=== PATIENT | male | born 1940 | race Caucasian/White ===

== ENCOUNTER 2017-05-31 03:33 | Emergency (ER) | payer BC, MEDICARE ==
--- OUTSIDE RECORDS SUMMARY | 2017-05-31 03:51 | XMS | Clinical Summary ---
:1940 Author Organization [facility] Address [address] [place] [address] Phone Care Team Providers Name Role Phone , Primary Care Provider Unavailable Allergies Not on File Current Medications Not on file Active Problems Not on file Social History Tobacco Use Types Packs/Day Years Used Date Never Assessed Sex Assigned at Date Recorded Not on file Last Filed Vital Signs Not on file Plan of Treatment Not on file Results Not on filefrom Last 3 Months
== END 2017-05-31 04:02 | disposition home or self-care (01) ==
LOC: ERS 03:33
DX: R13.10 Dysphagia, unspecified (principal); G20 Parkinson's disease; H40.9 Unspecified glaucoma
CPT/HCPCS: 99283

== ENCOUNTER 2017-07-04 16:23 | Observation (INO) | payer BC ==
[2017-07-04 17:12] LABS: #Lymphocytes 0.4 thou/uL (1.20-3.40); #Neutrophils 8.7 thou/uL (1.40-6.50); %Basophils 0.4 % (0.0-1.0); %Eosinophils 0.1 % (0.0-10.0); %Lymphocytes 4.3 % (21.0-51.0); %Monocytes 10.1 % (0.0-10.0); Hematocrit 35.7 % (42.0-52.0); Mean Platelet Volume 7.6 fL (7.4-10.4); Red Blood Cell (RBC) Count 3.42 mill/uL (4.70-6.10); White Blood Cell (WBC) Count 10.2 thou/uL (4.8-10.8)
[2017-07-04 17:30] LABS: Lactic Acid - Sepsis 0.6 mmol/L (0.5-2.2)
[2017-07-04 17:34] LABS: ALT (SGPT) Less than 7 U/L (8-55); AST (SGOT) 20 U/L (5-34); Alkaline Phosphatase 79 U/L (40-150); Anion Gap 11 mmol/L (10-20); BUN (Urea Nitrogen) 28 mg/dL (8.4-25.7); Bilirubin, Total 1.2 mg/dL (0.2-1.2); Calc. Creatinine Clearance 0 mL/min (70-130); Calcium 9.7 mg/dL (7.8-10.44); Carbon Dioxide 31 mmol/L (23-31); Chloride 91 mmol/L (98-107); Estimated GFR-MDRD 86; Globulin 3.3 g/dL (2.4-3.5); Protein, Total 7.4 g/dL (5.8-8.1)
[2017-07-04 17:58] LABS: Magnesium 2.2 mg/dL (1.6-2.6); Troponin I 0.012 ng/mL (< 0.028)
--- NOTE | 2017-07-04 18:11 | RAD ---
TWO AP VIEWS OF THE CHEST: Indication: Generalized weakness. IMPRESSION: No acute cardiopulmonary abnormality. COPD changes. Post-surgical changes involving the right lung ap ex is similar to the comparison dated 04-03-17. Previously seen left lower lobe nodule opacity has reso lved. POS: [facility]
[2017-07-04 18:27] LABS: Bilirubin Negative (Negative); Blood, Urine Negative (Negative); Glucose, Urine (Dipstick) Negative (Negative); Ketone, Urine Negative (Negative); Nitrite Negative (Negative); Protein, Urine (Dipstick) Negative (Neg-Trace)
[2017-07-04] MEDS ORDERED: Acetaminophen 325 MG TAB PO PRN (21:49)
[2017-07-04] MEDS ORDERED: Ondansetron HCl/PF 4 MG/2 ML Vial IVP PRN (21:49)
[2017-07-04] MEDS ORDERED: hydrALAZINE 20 MG/ML VIAL SLOW IVP PRN (21:49)
[2017-07-04] MEDS ORDERED: Famotidine 20 MG TAB PO SCH (22:00)
[2017-07-04] MEDS: Sodium Chloride 0.9% 1,000 ML IV SCH (22:21)
--- NOTE | 2017-07-04 22:38 | HP ---
PRIMARY CARE PHYSICIAN: Liban Guillen MD CHIEF COMPLAINT: Generalized weakness. HISTORY OF PRESENT ILLNESS: Mr. Nathan is a pleasant 76-year-old gentleman who has a history of Par kinson disease. He says he was diagnosed with pre-Parkinson disease about 5 years ago, but has had o vert symptoms in the last 2-3 years. About 4 months ago, he began having severe muscle weakness as w ell as trouble with swallowing. He is undergoing speech therapy for this. However, he had such dysp hagia that he had to have a PEG tube placed and that was this past summer. He says since then, he varela s had progressive muscle weakness to the point where today he was in jehovah's witness and when he sat down, he was having difficulty getting up and his could not get him up from a seated position. Normally, he has been walking with a walker. His also says she noticed a slight weakness in the left low er extremity as compared to the right. He has been on essentially the same dose of carbidopa/levodop a and his neurologist last saw him about 6 months ago. Otherwise, there have been no other complaint s. He does admit to having a low grade fever, but knows complaints such as cough or congestion or dy suria, etc. REVIEW OF SYSTEMS: Constitutional: Again, the patient has had a low grade temperature, but no chill s, no night sweats, no weight loss. HEENT: He denies any headaches, no dizziness, no visual changes , no sore throat, rhinorrhea, neck pain, no adenopathy. Pulmonary: No hemoptysis, no cough, no whee zing. Cardiovascular: He denies any chest pain, no shortness of breath, no PND, no orthopnea. Julio rointestinal: He denies any abdominal pain, no nausea, no vomiting, no change in bowels. Genitourin agus: No urinary frequency, hematuria, no hesitancy. Neurologic: No focal weakness. He has had gen eral weakness; however, no seizures. Extremities: No skin changes. No rash. Psychiatric: No symp toms of anxiety or depression. PAST MEDICAL HISTORY: Significant for Parkinson disease, glaucoma, hypothyroidism, seasonal allergie s, as well as dysphagia. PAST SURGICAL HISTORY: He has had a total thyroidectomy as well as a PEG tube placed. ALLERGIES: He is allergic to either PREDNISONE or PENICILLIN. He is not really sure which one. SOCIAL HISTORY: He is . He lives with his . He is a nonsmoker. He drinks socially. FAMILY HISTORY: Significant for TIAs, otherwise unknown. CURRENT MEDICATIONS: Include diazepam 2 mg as needed, beano 100 mg t.i.d. with all his feedings, Syn throid 125 mcg daily, carbidopa/levodopa 25/100, he says 4 tablets daily, Zyrtec 10 mg daily, pilocar pine as directed, dorzolamide as directed, TobraDex into the left leg twice a day and AzaSite in the left once daily. PHYSICAL EXAMINATION: VITAL SIGNS: Blood pressure was 134/64, heart rate 84, respiratory rate is 16, temperature was 99.2. HEENT: His pupils are equal, round, and reactive. Extraocular muscles are intact. Sclerae are anic teric. Throat, no erythema, no exudates. NECK: No adenopathy, no bruits. LUNGS: Clear. No wheezing, no rales. CARDIOVASCULAR: He has a normal S1, S2. I do not appreciate an S3 or S4. No murmurs, clicks, no ru bs. ABDOMEN: Soft, nontender, nondistended. Positive for bowel sounds. EXTREMITIES: There is no edema. NEUROLOGIC: The exam is nonfocal. He does have the stigmata of Parkinson disease with the masked fa cies. There was no resting tremor, however. LABORATORY AND X-RAY FINDINGS: White blood cell count is 10.2, hemoglobin 12.2, hematocrit 35.7, pradeep telet count is 187. Sodium 129, potassium 4.1, chloride is 91, CO2 is 31, BUN of 28, creatinine 0.86 , glucose is 118. TSH is 9.37. Urinalysis is essentially negative. Chest x-ray did not show any ac hubert cardiopulmonary disease. ASSESSMENT AND PLAN: 1. This is a 76-year-old gentleman who has a history of Parkinson disease, who demonstrated progress sebastián weakness over the last 4-5 months. He got to the point where he was unable to stand from a seate d position and this is the reason that he was brought to the emergency room. In the ER, it has been noted that he has low sodium which is new after reviewing his electronic records. He also has an sly vated TSH, which could signify under replaced hypothyroidism. These both can contribute to all weakn ess. The weakness also could be solely due to progression of his Parkinson's. Further evaluation an d workup for the progressive weakness and Parkinson disease, we will consult his neurologist to see i f he requires an adjustment on his medications. 2. For the hyponatremia, we will get urine and serum osmolality as well as a urine sodium level to h elp us further evaluate this and in the meantime, we will place him on normal saline. With this thyr oid disorder, we will need to check a free T4 and he may need an adjustment on his thyroid medication , possibly increasing him to 137 mcg daily. He will be placed on deep venous thrombosis and gastroin testinal prophylaxis as well as getting a PT consult as well as a Wound Care consult as the patient's mentioned that he does have a small sore on the sacral region. He may also need home health ev aluation with regard to continuing wound care in the outpatient setting.
[2017-07-05] MEDS ORDERED: SODIUM CHLORIDE TP SCH (01:15)
[2017-07-05] MEDS ORDERED: HYPOCHLOROUS ACID TP SCH (01:15)
[2017-07-05] MEDS ORDERED: [UNRECOGNIZED DRUG - OTHER] TP SCH (01:15)
[2017-07-05] MEDS ORDERED: Carbidopa/Levodopa 25-100 mg Tablet PO SCH (01:45)
[2017-07-05 02:43] LABS: Osmolality, Urine 397 mOsm/kg (300-900)
[2017-07-05 02:46] LABS: Sodium, Urine 57 mmol/L (Not Available)
[2017-07-05 04:39] LABS: #Lymphocytes 0.7 thou/uL (1.20-3.40); #Neutrophils 6.4 thou/uL (1.40-6.50); %Basophils 0.1 % (0.0-1.0); %Eosinophils 0.4 % (0.0-10.0); Mean Platelet Volume 8.5 fL (7.4-10.4); Red Blood Cell (RBC) Count 3.06 mill/uL (4.70-6.10); White Blood Cell (WBC) Count 8.1 thou/uL (4.8-10.8)
[2017-07-05 04:45] LABS: Anion Gap 9 mmol/L (10-20); BUN (Urea Nitrogen) 22 mg/dL (8.4-25.7); Calc. Creatinine Clearance 71 mL/min (70-130); Calcium 8.7 mg/dL (7.8-10.44); Carbon Dioxide 31 mmol/L (23-31); Chloride 95 mmol/L (98-107); Estimated GFR-MDRD Greater than 90
[2017-07-05] MEDS: Levothyroxine Sodium 125 MCG TAB PO SCH (07:41)
[2017-07-05] MEDS: Carbidopa/Levodopa 25-100 mg Tablet PO SCH ×4 (08:24→19:59)
[2017-07-05] MEDS: Loratadine 10 MG TAB PO SCH (08:24)
[2017-07-05] MEDS: Famotidine 20 MG TAB PO SCH ×2 (08:24→19:59)
[2017-07-05] MEDS: Pilocarpine 1% Ophth Drops 15 ML BOT R EYE SCH ×4 (08:24→20:19)
[2017-07-05] MEDS: Dorzolamide HCl 2% Ophth Soln 10 ml Bottle EA EYE SCH ×2 (08:27→20:19)
[2017-07-05] MEDS: Timolol 0.5% Ophth Soln 5 ml Bottle EA EYE SCH ×2 (08:27→20:13)
[2017-07-05] MEDS: Enoxaparin Sodium 40 MG/0.4 ML SYRINGE SC SCH (08:29)
[2017-07-05] MEDS ORDERED: Dorzolamide HCl/Timolol Maleate 2%/0.5% Ophth Soln 10 ml Bottle EA EYE SCH (09:00)
[2017-07-05] MEDS: Ipratropium Bromide 0.06% Nasal Inhaler 15ml EA NARE SCH ×3 (09:21→21:12)
[2017-07-05] MEDS: Sodium Chloride 0.9% 1,000 ML IV SCH (13:16)
--- NOTE | 2017-07-05 14:58 | PDOC.PN ---
- Subjective Encounter Start Date: 07/05/17 Encounter Start Time: 14:56 Mr. Nathan was seen today in follow-up for generalized weakness. He says he feels a little better. He was able to walk a few steps with a walker. He says the dryness in his mouth is better. - Objective Resuscitation Status: Resuscitation Status FULL:Full Resuscitation MAR Reviewed: Yes Vital Signs & Weight: Vital Signs (12 hours) Temp Pulse Resp BP Pulse Ox 07/05/17 11:00 98.0 F 66 14 123/57 L 98 07/05/17 08:27 67 07/05/17 07:06 98.3 F 67 14 137/80 100 Weight Admit Weight 138 lb Weight 138 lb I&O: 07/04/17 07/05/17 07/06/17 06:59 06:59 06:59 Intake Total 1494 Output Total 700 Balance 794 Result Diagrams: 07/05/17 03:45 07/05/17 03:45 Phys Exam - Physical Examination HEENT: PERRLA Respiratory: no wheezing, no rales, no rhonchi, clear to auscultation bilateral Cardiovascular: RRR, no significant murmur Gastrointestinal: soft, non-tender, positive bowel sounds Musculoskeletal: no edema Dx/Plan (1) Generalized weakness Code(s): R53.1 - WEAKNESS Status: Acute (2) Parkinson disease Code(s): G20 - PARKINSON'S DISEASE Status: Acute (3) Hyponatremia Code(s): E87.1 - HYPO-OSMOLALITY AND HYPONATREMIA Status: Acute - Plan * Generalized weakness- i suspect is due to advancing Parkinson's disease- await further recommendations from Neurology * Hyponatremia- likely from both volume depletion, and with the slightly higher urine osmols, he may have a component of SIADH * Will heplock IV fluids, and re-check his serum sodium in the AM * Hypothyroidism- his free T4 was normal- so he is adequately replaced * Rehab screen is pending- to help with re-conditioning.
[2017-07-05] MEDS ORDERED: RASAGILINE MESYLATE 1 MG PO SCH (17:15)
[2017-07-05] MEDS ORDERED: Non-Formulary Item 1 EACH (Bimatoprost [Lumigan 0.01% Ophth Soln] 1 DROP) EA EYE SCH (21:00)
[2017-07-05] MEDS: Latanoprost 0.005% Ophth Soln 2.5 ml Bottle EA EYE SCH (21:12)
[2017-07-06 05:06] LABS: Anion Gap 8 mmol/L (10-20); BUN (Urea Nitrogen) 21 mg/dL (8.4-25.7); Calc. Creatinine Clearance 83 mL/min (70-130); Calcium 8.5 mg/dL (7.8-10.44); Carbon Dioxide 30 mmol/L (23-31); Chloride 100 mmol/L (98-107); Estimated GFR-MDRD Greater than 90
--- NOTE | 2017-07-06 05:44 | CON ---
DATE OF CONSULTATION: 07/05/2017 REFERRING PROVIDER: Dr. Jose Jones. REASON FOR CONSULTATION: Worsening Parkinson disease. HISTORY OF PRESENT ILLNESS: Mr. Nathan is a 76-year-old male who has been considered for evaluation of worsening Parkinson disease. History is obtained from the patient, who provides most o f the history. The patient reports that he has a history of Parkinson disease for 2-3 years. He has been followed by Dr. Montana Sequeira. He is currently taking Sinemet 25/100 mg 4 times a day. He repo rts that overall he has been doing okay. Over the past few days, he has been noticing increasing wea kness. He reports that he had gone to the druze and had sat down. When he tried to get up, he was having difficulty with getting up. He required support of other people to have him stand up. He was also noted to have increasing episodes of walking which prompted them to call the EMS. He was then brought over here for further evaluation. He has a history of chronic dysphagia and has history of P EG tube placement. He reports that his speech has been becoming more and more difficult to understan d and more slurred. He was supposed to see Dr. Sequeira on this coming Wednesday. He reports that hi s strength has somewhat improved since being at the hospital. He was able to walk with the support o f a walker with the physical therapist. PAST MEDICAL HISTORY: Significant for hypothyroidism, Parkinson's disease, glaucoma, and dysphagia. PAST SURGICAL HISTORY: Significant for thyroidectomy, PEG tube placement. SOCIAL HISTORY: He is . He lives with his . He denies smoking. He drinks alcohol on oc casions. He denies illicit drug use. CURRENT MEDICATIONS: Please review MAR. ALLERGIES: Include PREDNISONE and PENICILLIN. FAMILY HISTORY: Noncontributory. REVIEW OF SYSTEMS: As mentioned in the HPI, otherwise negative. PHYSICAL EXAMINATION: VITAL SIGNS: Blood pressure of 148/69, pulse of 81, temperature of 98.1, respirations of 22, O2 sats of 97% on room air. GENERAL: Well-developed, well-nourished male in no apparent distress. RESPIRATORY: Clear to auscultation bilaterally. CARDIOVASCULAR: Regular rate and rhythm. NEUROLOGIC: Mental status: The patient is awake, alert, oriented x3. Speech and language: Mildly dysarthric speech noted. Cranial nerves: Pupils are 3 mm and reactive. Visual guerrero are intact. Extraocular muscles are intact. No nystagmus is noted. Face is symmetric. Tongue and uvula are mid line. Motor exam showed cogwheeling rigidity noted in both the wrist and elbow. Strength is 5/5 in both upper and lower extremities. He has reduced amplitude of finger tapping and hand opening and cl osing on both sides. Sensory: Sensation is intact and symmetric. Deep tendon reflexes are 2+ refle xes in both upper and lower extremities. Babinski: Plantar responses flexion bilaterally. LABORATORY DATA: I reviewed, which included CBC, CMP, TSH, free T4, CPK, CK-MB, troponin, urinalysis , which is significant for hemoglobin 10.9, hematocrit of 32.0. Sodium 131. TSH of 9.3722, otherwis e unremarkable. IMPRESSION: 1. Worsening Parkinson disease. 2. Gait abnormality to #1. Mr. Nathan is a pleasant 76-year-old male with history of Parkinson disease, on Sinemet 4 times a day, presented with the increasing difficulty with walking and getting out of the chair. At this time, I will recommend continue on Sinemet 4 times a day. He has an appointment with Dr. Ruthei peguero on Wednesday. I will try to see if Dr. Sequeira can see him in the hospital while he was admitted. If not, the patient can be seen as an outpatient on Wednesday for followup and his medication can be adjusted at that time. Thank you for your consultation.
[2017-07-06] MEDS: Levothyroxine Sodium 125 MCG TAB PO SCH (06:14)
[2017-07-06] MEDS: Carbidopa/Levodopa 25-100 mg Tablet PO SCH ×4 (08:20→20:50)
[2017-07-06] MEDS: Loratadine 10 MG TAB PO SCH (08:20)
[2017-07-06] MEDS: Enoxaparin Sodium 40 MG/0.4 ML SYRINGE SC SCH (08:20)
[2017-07-06] MEDS: Famotidine 20 MG TAB PO SCH ×2 (08:20→20:50)
[2017-07-06] MEDS: RASAGILINE MESYLATE 1 MG PO SCH (08:21)
[2017-07-06] MEDS: Timolol 0.5% Ophth Soln 5 ml Bottle EA EYE SCH ×2 (08:22→20:50)
[2017-07-06] MEDS: Dorzolamide HCl 2% Ophth Soln 10 ml Bottle EA EYE SCH ×2 (08:22→20:51)
[2017-07-06] MEDS: Pilocarpine 1% Ophth Drops 15 ML BOT R EYE SCH ×4 (08:22→20:51)
[2017-07-06] MEDS: BEANO PER TUBE SCH ×2 (10:03→10:04)
[2017-07-06] MEDS: Ipratropium Bromide 0.06% Nasal Inhaler 15ml EA NARE SCH ×4 (12:35→20:59)
--- NOTE | 2017-07-06 16:39 | PDOC.PN ---
- Subjective Encounter Start Date: 07/06/17 Encounter Start Time: 16:38 Mr. Nathan was seen today in follow-up of severe generalized weakness and hyponatremia. He is feeling a little better, but still very weak. - Objective Resuscitation Status: Resuscitation Status FULL:Full Resuscitation MAR Reviewed: Yes Vital Signs & Weight: Vital Signs (12 hours) Temp Pulse Resp BP Pulse Ox 07/06/17 12:00 97.8 F 66 14 86/52 L 98 07/06/17 08:22 69 07/06/17 08:00 98.1 F 63 18 136/76 94 L 07/06/17 04:48 98.2 F 69 18 134/98 H 96 Weight Admit Weight 138 lb Weight 143 lb 11.2 oz I&O: 07/05/17 07/06/17 07/07/17 06:59 06:59 06:59 Intake Total 1494 4780 Output Total 700 Balance 794 4780 Result Diagrams: 07/05/17 03:45 07/06/17 04:04 Phys Exam - Physical Examination HEENT: PERRLA Respiratory: no wheezing, no rales, no rhonchi, clear to auscultation bilateral Cardiovascular: RRR, no significant murmur Gastrointestinal: soft, non-tender, positive bowel sounds Musculoskeletal: no edema Dx/Plan (1) Generalized weakness Code(s): R53.1 - WEAKNESS Status: Acute (2) Parkinson disease Code(s): G20 - PARKINSON'S DISEASE Status: Acute (3) Hyponatremia Code(s): E87.1 - HYPO-OSMOLALITY AND HYPONATREMIA Status: Acute (4) Dysphagia Code(s): R13.10 - DYSPHAGIA, UNSPECIFIED Status: Acute - Plan * Hyponatremia- his serum sodium continues to improve * Advanced Parkinson's disease- continue PT/OT to help with achieving ADL's * Dysphagia- patient was seen by Speech Therapy, and will continue with their recommendations. * Awaiting Rehab screen
[2017-07-06] MEDS: SODIUM CHLOR L EYE SCH ×2 (17:28→20:52)
[2017-07-06] MEDS: HYPOCHLOROUS ACID L EYE SCH ×2 (17:28→20:52)
[2017-07-06] MEDS: Diazepam 2 MG TAB PO PRN (20:49)
[2017-07-06] MEDS: Acetaminophen 500 MG TAB PO PRN (20:50)
[2017-07-06] MEDS: Latanoprost 0.005% Ophth Soln 2.5 ml Bottle EA EYE SCH ×2 (20:51→21:00)
[2017-07-07] MEDS: Levothyroxine Sodium 125 MCG TAB PO SCH (05:33)
[2017-07-07 05:40] LABS: Anion Gap 9 mmol/L (10-20); BUN (Urea Nitrogen) 21 mg/dL (8.4-25.7); Calc. Creatinine Clearance 81 mL/min (70-130); Carbon Dioxide 30 mmol/L (23-31); Chloride 102 mmol/L (98-107); Estimated GFR-MDRD Greater than 90
[2017-07-07] MEDS: Loratadine 10 MG TAB PO SCH (09:15)
[2017-07-07] MEDS: Famotidine 20 MG TAB PO SCH ×2 (09:15→20:44)
[2017-07-07] MEDS: Carbidopa/Levodopa 25-100 mg Tablet PO SCH ×4 (09:16→20:44)
[2017-07-07] MEDS: Pilocarpine 1% Ophth Drops 15 ML BOT R EYE SCH ×4 (09:16→20:39)
[2017-07-07] MEDS: Timolol 0.5% Ophth Soln 5 ml Bottle EA EYE SCH ×2 (09:17→20:40)
[2017-07-07] MEDS: RASAGILINE MESYLATE 1 MG PO SCH (09:24)
[2017-07-07] MEDS: Dorzolamide HCl 2% Ophth Soln 10 ml Bottle EA EYE SCH ×2 (09:33→20:40)
[2017-07-07] MEDS: HYPOCHLOROUS ACID L EYE SCH ×3 (09:35→20:45)
[2017-07-07] MEDS: SODIUM CHLOR L EYE SCH ×3 (09:35→20:45)
[2017-07-07] MEDS: Enoxaparin Sodium 40 MG/0.4 ML SYRINGE SC SCH (09:43)
[2017-07-07] MEDS: Ipratropium Bromide 0.06% Nasal Inhaler 15ml EA NARE SCH ×3 (09:46→20:45)
[2017-07-07 13:40] VITALS: BMI 19.4
--- NOTE | 2017-07-07 16:39 | PDOC.PN ---
- Subjective Encounter Start Date: 07/07/17 Encounter Start Time: 16:36 Mr. Nathan was seen today in follow-up. He says that a medication he took last night made him hallucinate. He is still very weak. - Objective Resuscitation Status: Resuscitation Status FULL:Full Resuscitation MAR Reviewed: Yes Vital Signs & Weight: Vital Signs (12 hours) Temp Pulse Resp BP BP Pulse Ox 07/07/17 12:00 97.7 F 76 12 145/70 H 07/07/17 09:17 66 157/83 H 07/07/17 08:30 97.7 F 76 12 07/07/17 08:00 98.1 F 66 12 157/83 H 96 Weight Admit Weight 138 lb Weight 143 lb 4.807 oz I&O: 07/06/17 07/07/17 07/08/17 06:59 06:59 06:59 Intake Total 4780 1570 900 Balance 4780 1570 900 Result Diagrams: 07/05/17 03:45 07/07/17 05:07 Phys Exam - Physical Examination HEENT: PERRLA Respiratory: no wheezing, no rales, no rhonchi, clear to auscultation bilateral Cardiovascular: RRR, no significant murmur Gastrointestinal: soft, non-tender, positive bowel sounds Musculoskeletal: no edema Dx/Plan (1) Generalized weakness Code(s): R53.1 - WEAKNESS Status: Acute (2) Parkinson disease Code(s): G20 - PARKINSON'S DISEASE Status: Acute (3) Hyponatremia Code(s): E87.1 - HYPO-OSMOLALITY AND HYPONATREMIA Status: Acute (4) Dysphagia Code(s): R13.10 - DYSPHAGIA, UNSPECIFIED Status: Acute - Plan * Generalized weakness- patient continues to be weak despite correction of his serum sodium * Hyponatremia-corrected * Dysphagia- continue tube feeds, and speech therapy * Patient's says she is unable to care for her at home, and will not take him home today * I have explained to the patient the natural history of Parkinson's disease and that she will need to begin thinking of alternate means of caring for him regardless of the approval for rehab * Awaiting insurance approval for Rehab.
[2017-07-07] MEDS: Latanoprost 0.005% Ophth Soln 2.5 ml Bottle EA EYE SCH (20:42)
[2017-07-07] MEDS: Acetaminophen 500 MG TAB PO PRN (20:44)
[2017-07-07] MEDS: Diazepam 2 MG TAB PO PRN (20:44)
[2017-07-08] MEDS: Acetaminophen 500 MG TAB PO PRN (05:44)
[2017-07-08] MEDS: Levothyroxine Sodium 125 MCG TAB PO SCH (05:44)
[2017-07-08] MEDS: Timolol 0.5% Ophth Soln 5 ml Bottle EA EYE SCH (09:51)
[2017-07-08] MEDS: Carbidopa/Levodopa 25-100 mg Tablet PO SCH ×3 (09:53→16:09)
[2017-07-08] MEDS: Famotidine 20 MG TAB PO SCH (09:54)
[2017-07-08] MEDS: Loratadine 10 MG TAB PO SCH (09:54)
[2017-07-08] MEDS: Ipratropium Bromide 0.06% Nasal Inhaler 15ml EA NARE SCH ×2 (09:55→15:08)
[2017-07-08] MEDS: RASAGILINE MESYLATE 1 MG PO SCH (09:56)
[2017-07-08] MEDS: Enoxaparin Sodium 40 MG/0.4 ML SYRINGE SC SCH ×2 (09:57→10:18)
[2017-07-08] MEDS: Dorzolamide HCl 2% Ophth Soln 10 ml Bottle EA EYE SCH (10:14)
[2017-07-08] MEDS: Pilocarpine 1% Ophth Drops 15 ML BOT R EYE SCH ×3 (10:14→16:10)
[2017-07-08] MEDS: HYPOCHLOROUS ACID L EYE SCH ×2 (10:19→12:16)
[2017-07-08] MEDS: SODIUM CHLOR L EYE SCH ×2 (10:19→12:16)
[2017-07-08] MEDS: AZITHROMYCIN 1% L EYE SCH ×2 (10:20→12:15)
[2017-07-08] MEDS ORDERED: Lisinopril 20 MG TAB PO SCH (12:00)
--- NOTE | 2017-07-08 14:22 | PDOC.PN ---
- Subjective Encounter Start Date: 07/08/17 Encounter Start Time: 14:19 Mr. Nathan was seen today in follow-up. He is feeling a little better, no new complaints. - Objective Resuscitation Status: Resuscitation Status FULL:Full Resuscitation MAR Reviewed: Yes Vital Signs & Weight: Vital Signs (12 hours) Temp Pulse Resp BP BP Pulse Ox 07/08/17 11:58 156/87 H 07/08/17 09:51 70 166/76 H 07/08/17 08:00 98.6 F 70 16 166/76 H 94 L 07/08/17 05:17 98.7 F 66 17 161/82 H 99 Weight Admit Weight 138 lb Weight 143 lb 4.807 oz I&O: 07/07/17 07/08/17 07/09/17 06:59 06:59 06:59 Intake Total 1570 2029 Balance 1570 2029 Result Diagrams: 07/05/17 03:45 07/07/17 05:07 Phys Exam - Physical Examination HEENT: PERRLA Respiratory: no wheezing, no rales, no rhonchi, clear to auscultation bilateral Cardiovascular: RRR, no significant murmur Gastrointestinal: soft, non-tender, positive bowel sounds Musculoskeletal: no edema Dx/Plan (1) Generalized weakness Code(s): R53.1 - WEAKNESS Status: Acute (2) Parkinson disease Code(s): G20 - PARKINSON'S DISEASE Status: Acute (3) Hyponatremia Code(s): E87.1 - HYPO-OSMOLALITY AND HYPONATREMIA Status: Acute (4) Dysphagia Code(s): R13.10 - DYSPHAGIA, UNSPECIFIED Status: Acute - Plan * Generalized weakness- continue PT/OT * HTN- blood pressure is beginnning to trend up- will re-start Lisinopril, but without HCTZ due to hyponatremia * He has been approved to go to Inpatient Rehab- will transfer today.
[2017-07-08] MEDS: Diazepam 2 MG TAB PO PRN (16:14)
[2017-07-08 17:43] VITALS: BP 158/83
--- NOTE | 2017-07-08 20:39 | DIS ---
DATE OF ADMISSION: 07/04/2017 DATE OF DISCHARGE: 07/08/2017 PRIMARY CARE PHYSICIAN: Liban Guillen M.D. DISCHARGE DISPOSITION: Inpatient rehabilitation. DISCHARGE DIAGNOSES: 1. Advanced Parkinson's disease. 2. Generalized weakness. 3. Hyponatremia. 4. Hypothyroidism. 5. Hypertension. DISCHARGE MEDICATIONS: The patient's lisinopril/hydrochlorothiazide was changed to plain lisinopril. He is to continue Azilect 1 mg daily, pilocarpine 1% one drop into the right eye 4 times a day, lev othyroxine 125 mcg daily, ipratropium nasal spray daily, dorzolamide one drop in each eye twice a day , Valium 2 mg twice a day as needed, Zyrtec 5 mg daily, carbidopa/levodopa 25/100 one tablet q.i.d., Lumigan eyedrops at bedtime, 100 mg per day, azithromycin ophthalmic solution one drop into the left eye daily, and Tylenol 250 mg as needed. CODE STATUS: FULL CODE. ALLERGIES: PREDNISONE and PENICILLIN. HOSPITAL COURSE: Mr. Nathan is a pleasant 76-year-old gentleman that has a history of Parkinson's d isease which is fairly advanced. He has been noting progressive weakness over the last several month s, but more recently in the last couple of weeks, he has had severe muscle weakness and difficulty ge tting up even from a seated position. The patient was so weak that his could not stand him up a fter they had gone to [facility]. Because she could not care for him any longer at home and he had faile d some treatment outpatient, he was brought to the hospital. It was found that he had low sodium lev el of 129 and it is felt that this contributed to his weakness. His sodium was corrected; however, h e still retained some degree of weakness. He was able to get up with the physical therapists and wal k a few steps with a walker, but was going to require continued therapy to help him get back to his p revious baseline status such that he was at least ambulatory and able to contribute to his activities of daily living at home. He was subsequently transferred to inpatient rehabilitation on 07/08/2017.
[2017-07-08 22:05] VITALS: TEMP 98.5
[2017-07-09] MEDS ORDERED: Lisinopril 20 MG TAB PO SCH (09:00)
--- NOTE | 2017-07-10 13:37 | EKG ---
Test Reason : Blood Pressure : / mmHG Vent. Rate : 081 BPM Atrial Rate : 081 BPM P-R Int : 146 ms QRS Dur : 094 ms QT Int : 364 ms P-R-T Axes : 064 054 058 degrees QTc Int : 422 ms Normal sinus rhythm Cannot rule out Anterior infarct , age undetermined Abnormal ECG Confirmed by ROSALES VASQUEZ, WESTON Prince ([id number]), editor city ZAFAR SONG ([id number]) on 07/10/2017 1:36:31 PM Referred By: Confirmed By:WESTON CABA MD
== END 2017-07-08 19:01 ==
LOC: ERS 16:23 → SURG B 19:09
PROVIDERS: ADMIT Internal Medicine; ATTEND Internal Medicine
DX: G20 Parkinson's disease (principal); R53.1 Weakness; E87.1 Hypo-osmolality and hyponatremia; E03.9 Hypothyroidism, unspecified; I10 Essential (primary) hypertension; Z88.0 Allergy status to penicillin; H40.9 Unspecified glaucoma; Z88.8 Allergy status to other drugs, medicaments and biological substances; Z79.899 Other long term (current) drug therapy
CPT/HCPCS: 36415; 71010; 80048; 80053; 81003; 82550; 82553; 83605; 83690; 83735; 83930; 83935; 84300; 84439; 84443; 84484; 85025; 93005; 96360; 96361; 96372; A4216; G0378; G8978-GP-CJ; G8979-GP-CI; G8987-GO-CK; G8988-GO-CJ; G8996-GN-CN; G8997-GN-CN; J1650

== ENCOUNTER 2017-09-17 20:25 | Inpatient (IN) | payer BC, MEDICARE ==
--- NOTE | 2017-09-17 21:09 | RAD ---
FRONTAL VIEW CHEST 09/17/17 COMPARISON: 07/04/17 CLINICAL HISTORY: Fever and cough. FINDINGS: Newly developed left upper lobe consolidation with perihilar distribution present. Right lung is andrzej sly clear. Cardiac silhouette is accentuated by portable technique. There is a left pleural effusion which has developed from the prior exam. IMPRESSION: Evidence of newly developed perihilar consolidation and left pleural effusion. Findings indicate pneu monia and parapneumonic effusion. Recommend radiographic followup to resolution upon completion of tr eatment regimen. POS: [facility]
[2017-09-17 21:53] LABS: Mean Corpuscular HGB CONC 32.5 g/dL (32.0-36.0); Mean Corpuscular Hemoglobin 32.1 pg (27.0-31.0); Mean Corpuscular Volume 98.8 fl (80.0-94.0); Mean Platelet Volume 6.6 fL (7.4-10.4); Platelet Count 701 thou/uL (130-400); RBC Distribution Width 12.2 % (11.5-14.5); White Blood Cell (WBC) Count 20.8 thou/uL (4.8-10.8)
[2017-09-17 22:03] LABS: ALT (SGPT) 35 U/L (8-55); AST (SGOT) 30 U/L (5-34); Albumin 3.2 g/dL (3.4-4.8); Alkaline Phosphatase 119 U/L (40-150); Anion Gap 15 mmol/L (10-20); BUN (Urea Nitrogen) 32 mg/dL (8.4-25.7); Bilirubin, Total 0.5 mg/dL (0.2-1.2); Calc. Creatinine Clearance 0 mL/min (70-130); Calcium 9.3 mg/dL (7.8-10.44); Carbon Dioxide 27 mmol/L (23-31); Chloride 94 mmol/L (98-107); Estimated GFR-MDRD 89; Globulin 4.6 g/dL (2.4-3.5); Glucose 140 mg/dL (83-110); Potassium 4.8 mmol/L (3.5-5.1); Protein, Total 7.8 g/dL (5.8-8.1); Sodium 131 mmol/L (136-145)
[2017-09-17 22:08] LABS: Band 18 % (5-11); Lymphocytes 2 % (21-51); MDiff Complete? YES; Monocytes 11 % (0-10); Neutrophil 68 % (42-75); PLT Morphology Comment Appears Increased; Platelet Clumps SLIGHT
[2017-09-18] MEDS ORDERED: Ondansetron HCl/PF 4 MG/2 ML Vial IVP PRN ×2 (00:33→01:15)
[2017-09-18] MEDS ORDERED: Ondansetron ODT 4 MG TAB SL PRN (00:33)
[2017-09-18] MEDS ORDERED: Acetaminophen 650 MG/20.3 ML UDCUP PER TUBE PRN (00:34)
[2017-09-18] MEDS ORDERED: Sodium Chloride 0.9% 1,000 ML IV SCH (00:45)
[2017-09-18] MEDS ORDERED: Clindamycin/D5W 300 MG/50 ML BAG IVPB SCH (01:00)
[2017-09-18] MEDS ORDERED: Cefepime 2 GM, Syringe 2.5 ML in Sterile Water 10 ML SLOW IVP SCH (01:00)
[2017-09-18] MEDS ORDERED: Ondansetron ODT 4 MG TAB PO PRN (01:15)
[2017-09-18 01:23] VITALS: BMI 20.5
[2017-09-18] MEDS: HYDROcodone/Acetaminophen 5/325 mg Tablet PO PRN (01:52)
[2017-09-18] MEDS: Diazepam 2 MG TAB PER TUBE PRN ×2 (01:52→21:50)
[2017-09-18] MEDS: Clindamycin/D5W 900 MG in Premix Bag 1 BAG IVPB SCH ×3 (02:55→17:36)
--- NOTE | 2017-09-18 04:11 | HP ---
DATE OF ADMISSION: 09/17/2017 TIME OF SERVICE: 0010 hours. CHIEF COMPLAINT: Shortness of breath and fever. HISTORY OF PRESENT ILLNESS: Patient was accepted earlier in the evening; however, a code green was c alled due to respiratory insufficiency on the floor. The patient was evaluated urgently. Time in code green and transferred to the [facility] on BiPAP for stabilization, 45 minutes of critical car e time was spent. HISTORY OF PRESENT ILLNESS: Mr. Nathan is a 77-year-old white male with history of oropharyngeal dysphagia, Parkinsons disease, hypothyroidism, and glaucoma. The patient is currently a resident of a shelter getting a chroni c tube feeds and rehabilitation. He was transferred to the emergency department today via EMS for evaluation of fever and shortness of breath with hypoxia. He has been having a cough productive of greeny-yellow sputum, and fevers at [facility]. No chills were noted. He has had some increased shortness of breath with increased work of breathing . In the emergency department, he was noted to have a white count of 20.8, 18% bands, he was tachypneic . He was initially hypoxic. He was placed on nonrebreather and we were called for admission. The p atient was accepted. On arrival to the floor, he was noted to be 80% after some time on a nonrebreat her after a code green was called. He was transferred to the ICU urgently and placed on BiPAP. He h ad good response. While in the emergency department, did receive vancomycin, cefepime, and levofloxacin. He received 2 liters of normal saline. On my evaluation, the patient really able to give any history. He is on a nonrebreather initially and very somnolent. He was much more awake on the BiPAP. PAST MEDICAL HISTORY: 1. Oropharyngeal dysphagia. 2. Parkinsons disease. 3. Glaucoma. 4. Hypothyroidism, acquired. PAST SURGICAL HISTORY: 1. Thyroidectomy. 2. Bilateral cataract removal and replacement. 3. Tonsillectomy and adenoidectomy remotely. 4. PEG tube placement. HOME MEDICATIONS: 1. Valium 2 mg p.o. b.i.d. p.r.n. 2. Beano. 3. Synthroid 125 mcg daily. 4. Carbidopa/levodopa 25/100 one p.o. t.i.d. 5. Zyrtec 5 mg daily. 6. Pilocarpine 0.5% 1 drop each eye daily. 7. Dorzolamide/timolol 2% / 0.5% one drop each eye daily. 8. TobraDex left eye b.i.d. ALLERGIES: PREDNISONE and PENICILLIN. FAMILY HISTORY: Negative for clotting or bleeding disorder, no immune dysfunction. SOCIAL HISTORY: Usually has twice a month alcohol, obviously none since he has been in the nursing h ome. No history of IV drug use. No history of tobacco. He is . His is at the bedside. We discussed the code status. She does wish him to be per his wishes. He is a DNR. When further pressed, no intubation, no CPR, no electricity, pressors and BiPAP were ok ay at present. Family is on the way in. REVIEW OF SYSTEMS: Ten point review of systems not obtainable due to depressed mental status. PHYSICAL EXAMINATION: VITAL SIGNS: Temperature on arrival to the IMCU 99.2; pulse 128, now down to 101; blood pressure 116 /77, now down to 130/71; respiratory rate was 35, now down to 21; satting 98%-100% on BiPAP. Per the emergency room notes, on arrival to the ER today, temperature was 99.2 there as well. GENERAL: He is awake, he is somnolent, but arousable. He does kind of moans. He is in moderate to severe respiratory distress. He has audible upper airway gurgling and a very, very weak cough. HEENT: He is normocephalic and atraumatic. His pupils are equal, round, reactive to light bilateral ly. His mucous membranes are dry on BiPAP. NECK: Supple. There is no lymphadenopathy, JVD, or thyromegaly. He has got normal carotid upstroke s. He does resist flexion, extension of the neck, but when talked to, is able to do without any diff iculty. CHEST: He has upper airway gurgling that is transmitted down bilaterally, he has dullness to the lef t base and left basilar crackles posteriorly. LUNGS: He has good air movement. There is no prolonged expiratory phase. No wheezes and no rhonchi . CARDIOVASCULAR: He is tachycardic and regular. I could not appreciate murmurs. ABDOMEN: Soft. It is nontender, nondistended. He has got normoactive bowel sounds present in all 4 quadrants. He has a PEG tube present in the left upper quadrant that appears to be clean, dry, and intact. EXTREMITIES: No cyanosis, no clubbing. Has got trace bilateral extremity edema just above the ankle s. SKIN: Cool and clammy. Capillary refill around 3 seconds. MUSCULOSKELETAL: Exam is normal to inspection. He has got no evidence of joint inflammation or palp able effusions. NEUROLOGIC: Moves extremities x4. He is extremely weak, probably a 3-1/2 to 4/5. He has got no foc al deficits. Cranial nerves appear to be intact. He does not follow commands very well. LABORATORY EVALUATION: Sodium is 131, potassium 4.8, chloride 94, bicarbonate 27, BUN 32, creatinine 0.83, glucose 140, calcium 9.3. Liver functions are normal. Albumin is low at 3.2. CBC showed a w chago count of 20.8, 68% granulocytes, 18% bands, 2% lymphocytes, 11% monocytes. Hemoglobin is 9.0, h ematocrit of 27.7, platelet count was 701,000. Lactic acid was 0.7. Chest x-ray showed a new left effusion and a perihilar consolidation. ASSESSMENT AND PLAN: 1. Healthcare-associated pneumonia. He has a left lower lobe effusion with compressive atelectasis or infiltrate. We will place him on clindamycin for aspiration coverage, cefepime, and levofloxacin for healthcare associated germs. There does not appear to be any lung abscesses or evidence of methi cillin-resistant Staphylococcus aureus pneumonia. 2. Acute hypoxic respiratory failure. The patient is currently on BiPAP. Per the 's discussion with me, this does seem to be a temporary measure. We will continue right now. Family members on t he way in. They may choose to withdrawal at that time. 3. Oropharyngeal dysphagia on tube feeds, is getting TwoCal 1.5 cans t.i.d. We will continue. 4. Parkinsons disease, on Sinemet. We will continue to give him this via tube. 5. Glaucoma. He is on multiple eyedrops, which are continued. 6. Hypothyroidism, on Synthroid. We will continue. 7. Sepsis. The patient does meet sepsis criteria with tachycardia, fever, elevated white count with left shift, and probable bacterial infection. Lactic acid is normal. No evidence of end-organ dysf unction, otherwise. I will continue to monitor.
[2017-09-18] MEDS: Liothyronine Sodium 25 MCG TAB PO SCH (05:35)
[2017-09-18] MEDS: Levothyroxine Sodium 125 MCG TAB PO SCH (05:36)
[2017-09-18] MEDS ORDERED: Liothyronine Sodium 25 MCG TAB PER TUBE SCH ×2 (06:00→09:00)
[2017-09-18] MEDS: Carbidopa/Levodopa 25-100 mg Tablet PER TUBE SCH ×4 (08:11→21:49)
[2017-09-18] MEDS: Loratadine 10 MG TAB PER TUBE SCH (08:12)
[2017-09-18] MEDS: guaiFENesin ER 600 MG TAB PER TUBE SCH ×2 (08:12→21:50)
[2017-09-18] MEDS: Pilocarpine 1% Ophth Drops 15 ML BOT R EYE SCH ×4 (08:13→21:44)
[2017-09-18] MEDS: Famotidine/PF 20 mg/2ml Vial SLOW IVP SCH ×2 (08:14→21:45)
[2017-09-18] MEDS: Ipratropium Bromide 0.06% Nasal Inhaler 15ml EA NARE SCH ×3 (08:15→21:41)
[2017-09-18] MEDS: RASAGILINE MESYLATE 1 MG PO SCH (08:15)
[2017-09-18] MEDS ORDERED: Cefepime 2 GM in Sodium Chloride 0.9% 100 ML IVPB SCH (09:00)
[2017-09-18] MEDS ORDERED: Carbidopa/Levodopa 25-100 mg Tablet PER TUBE SCH (09:00)
[2017-09-18] MEDS: Dorzolamide HCl/Timolol Maleate 2%/0.5% Ophth Soln 10 ml Bottle EA EYE SCH ×2 (10:00→21:49)
[2017-09-18] MEDS: Acetaminophen 325 MG TAB PO PRN ×2 (10:01→21:50)
[2017-09-18] MEDS ORDERED: Magnesium Sulfate 3 GM in Sodium Chloride 0.9% 100 ML IVPB SCH (14:45)
[2017-09-18] MEDS: Cefepime 2 GM, Syringe 2.5 ML in Sterile Water 10 ML SLOW IVP SCH (14:59)
[2017-09-18] MEDS ORDERED: Scopolamine 1.5 mg/72 hour Patch TD SCH (15:00)
[2017-09-18] MEDS: Latanoprost 0.005% Ophth Soln 2.5 ml Bottle EA EYE SCH (21:43)
--- NOTE | 2017-09-19 00:32 | CON ---
DATE OF CONSULTATION: 09/18/2017 HISTORY: Mr. Nathan is an unfortunate gentleman with advanced movement disorder (Parkinson's diseas e.) Apparently, he was admitted and then transferred to the IMU for BiPAP. BiPAP was never placed. Apparently, he was having some respiratory distress and some secretion issues. This is improved. His family is in the room (son and and I reviewed them and answered all their questions.) He lives in a care environment now. He has a PEG in place. PAST MEDICAL HISTORY: 1. Remarkable for a PEG placement for swallowing dysfunction. 2. History of glaucoma with almost complete blindness. 3. History of hyperthyroidism, after thyroidectomy on replacement. 4. History of cataract surgery in the past. SOCIAL HISTORY: He is a nonsmoker, nondrinker, and he does not use drugs. ALLERGIES: PENICILLIN and ?PREDNISONE. MEDICATIONS: He was on Valium, Beano, Synthroid, carbidopa/levodopa, Zyrtec, pilocarpine, dorzolamid e, timolol eyedrops and TobraDex. FAMILY HISTORY: Negative for lung disease at an early age. REVIEW OF SYSTEMS: Not accurately obtainable. He has a very supportive and son in the room, may have appropriate care goals in my opinion. PHYSICAL EXAMINATION: GENERAL: This gentleman is in no distress. He is afebrile. VITAL SIGNS: Heart rate in the 80s, respiratory rate is 18. He does have upper airway secretions th at are audible in his throat. NECK: Supple. No lymphadenopathy. LUNGS: Remarkable for mild rhonchi bilaterally. HEART: Regular rhythm. ABDOMEN: Soft and nontender. EXTREMITIES: Without asymmetry. LABORATORY DATA: White count 20.8, hemoglobin 9.0, platelets 701,000. Sodium 131, potassium 4.8, ch loride 94, bicarbonate 27, BUN 32, creatinine 0.8, glucose 140. Chest radiograph shows left upper lo be and left hilar infiltrate with small effusion. IMPRESSION: Aspiration pneumonia. PLAN: Continue supportive care, scopolamine may help with upper airway secretions hopefully 24 to 48 hours, transition down from antimicrobial therapy. He is stable to move out of the intermediate car e unit. He can continue p.r.n. BiPAP from regular unit. I will increase his nebulized treatments every 4 hours. A 50-minute consult, greater than 50% of the time was spent on the unit coordinating care.
[2017-09-19] MEDS: HYDROcodone/Acetaminophen 5/325 mg Tablet PO PRN ×3 (01:29→13:06)
[2017-09-19] MEDS: Clindamycin/D5W 900 MG in Premix Bag 1 BAG IVPB SCH ×2 (01:47→10:25)
[2017-09-19] MEDS: Diazepam 2 MG TAB PER TUBE PRN ×2 (01:49→20:51)
[2017-09-19] MEDS: Cefepime 2 GM, Syringe 2.5 ML in Sterile Water 10 ML SLOW IVP SCH ×2 (02:57→13:12)
[2017-09-19] MEDS: Levothyroxine Sodium 125 MCG TAB PO SCH (05:19)
[2017-09-19] MEDS: Liothyronine Sodium 25 MCG TAB PO SCH (05:20)
[2017-09-19] MEDS: Carbidopa/Levodopa 25-100 mg Tablet PER TUBE SCH ×5 (08:03→20:51)
[2017-09-19] MEDS: Dorzolamide HCl/Timolol Maleate 2%/0.5% Ophth Soln 10 ml Bottle EA EYE SCH ×2 (08:04→20:52)
[2017-09-19] MEDS: Famotidine/PF 20 mg/2ml Vial SLOW IVP SCH ×2 (08:05→20:51)
[2017-09-19] MEDS: guaiFENesin ER 600 MG TAB PER TUBE SCH ×2 (08:06→20:51)
[2017-09-19] MEDS: Loratadine 10 MG TAB PER TUBE SCH (08:06)
[2017-09-19] MEDS: Pilocarpine 1% Ophth Drops 15 ML BOT R EYE SCH ×4 (08:06→20:52)
[2017-09-19] MEDS: Ipratropium Bromide 0.06% Nasal Inhaler 15ml EA NARE SCH ×3 (08:07→20:52)
[2017-09-19] MEDS: RASAGILINE MESYLATE 1 MG PO SCH (08:08)
[2017-09-19 15:35] VITALS: TEMP 98.2
[2017-09-19] MEDS ORDERED: Morphine 5 MG/ML SYRINGE SLOW IVP PRN (17:40)
--- NOTE | 2017-09-19 17:51 | PRG ---
DATE OF SERVICE: 09/19/2017 SUBJECTIVE: Mr. Nathan has not done as well today, he has had more issues with secretions. I met with the ; she wants him to go to inpatient hospice as soon as possible. I do not think th jessica can care for him at home any longer. I would not anticipate he would last much more in a few days. We are attempting to facilitate this a t this time.
[2017-09-19] MEDS: Latanoprost 0.005% Ophth Soln 2.5 ml Bottle EA EYE SCH (20:52)
[2017-09-19 21:59] VITALS: BP 115/62
--- NOTE | 2017-09-21 15:43 | DIS ---
For details of the history and physical and the consultative notes, please refer to dictations on rec ord. SUMMARY: This is a 77-year-old gentleman who was [facility] with fever and ana rtness of breath. The patient initially managed with nonrebreather, admitted to the floor; however, the patient decompensated respiratory morales requiring transfer to ICU on BiPAP. The patient responded very well to this modality of treatment and was seen on consultation by Pulmonary and Critical Care attending Dr. Reza. The patient having maintained sustained clinical improvement after being treate d with broad spectrum antibiotics was deemed, the patient was discharged to inpatient hospice. Total time spent including [id number] encounter 31 minutes.
== END 2017-09-19 22:20 | disposition hospice, inpatient (51) | DRG 871 ==
LOC: ERS 20:25 → T4-A 22:04 → IMCU/EMU 09-18 00:25 → T4-A 09-18 18:57
PROVIDERS: ADMIT Internal Medicine Infectious Disease; ATTEND Internal Medicine Infectious Disease
DX: A41.9 Sepsis, unspecified organism (principal); J96.01 Acute respiratory failure with hypoxia; J69.0 Pneumonitis due to inhalation of food and vomit; G20 Parkinson's disease; R13.12 Dysphagia, oropharyngeal phase; E03.9 Hypothyroidism, unspecified; H40.9 Unspecified glaucoma; Z93.1 Gastrostomy status; Z88.0 Allergy status to penicillin; Z88.8 Allergy status to other drugs, medicaments and biological substances; Z66 Do not resuscitate; Z51.5 Encounter for palliative care
CPT/HCPCS: 71045; 80053; 82550; 83605; 85025; 87040; 94640; 94660; 94760; 96361; 96365; A4216; G8978-GP-CL; G8979-GP-CK; G9162-GN-CM; G9163-GN-CL; J0692; J1956; J3370; J3490; J7620; S0028